=== PATIENT | male | born 1980 | race Asian ===

== ENCOUNTER 2023-07-05 23:01 | Emergency (ER) | payer OTHER ==
[~2023-07-05] VITALS: Ht 170.2 cm; Wt 79.4 kg
[2023-07-05 23:30] VITALS: BP 131/72; TEMP 98.9; O2SAT 98
[2023-07-06] MEDS ORDERED: COLC0.6T67 PO (00:40)
== END 2023-07-06 01:42 | disposition home or self-care (01) ==
LOC: ER 23:03
DX: M10.9 Gout, unspecified (principal); Z79.899 Other long term (current) drug therapy
CPT/HCPCS: 36415; 84550-TC